=== PATIENT | male | born 2000 | race Two or more races ===

== ENCOUNTER 2025-06-11 06:29 | Emergency (ER) | payer MEDICAID, SELFPAY ==
[2025-06-11 06:39] VITALS: BP 149/84; PULSE 153; RESP 19; TEMP 36.8; O2SAT 97; BMI 24.3
--- NOTE | 2025-06-11 06:39 | XR_ITS ---
Examination: CT brain head without contrast. 2-D sagittal coronal reconstructions Date and time of exam:June 11, 2025 0836 hours INDICATIONS: Patient fell today with injury to the head, head pain CTDI: vol (mGy):50.4 DLP: (mGycm):983 Technique: Multiple CT axial sections of the brain have been obtained, 5 mm slice thickness. Contrast has not been administered. 2-D sagittal, coronal reconstructions have been obtained Low dose protocols were performed. One or more of the following dose reduction techniques were used; automated exposure control, adjustment of the mA and/or KV according to patient size, use of iterative reconstruction technique. Findings: No significant ventricular enlargement. Intra-axial or extra-axial hemorrhage density is not seen. No mass effect or midline shift Basal cisterns are not remarkable. Fourth ventricle is midline. Cranial vault intact. Impression: Negative for acute hemorrhage, mass effect or midline shift
--- NOTE | 2025-06-11 06:39 | XR_ITS ---
Examination: CT cervical spine without contrast 2-D sagittal reconstructions 2-D coronal reconstructions 3-D reconstructions. Exam date and time:June 11, 2025 0836 hours INDICATIONS: Patient fell this morning with injury to the neck, neck pain CTDI:vol (mGy) 14.6 DLP: (mGycm) 324 Technique: Multiple 2 mm axial sections of the cervical spine have been obtained. The coronal and sagittal reconstructions have been obtained. 3-D reconstructions have been obtained. Low dose protocols were performed. One or more of the following dose reduction techniques were used; automated exposure control, adjustment of the mA and/or KV according to patient size, use of iterative reconstruction technique. Findings: Axial sections demonstrate intact base of the skull. C1 exhibit satisfactory relationship to the odontoid. No acute cervical vertebral body fracture seen. Alignment posterior spinous processes satisfactory. Impression: No acute cervical fracture.
--- NOTE | 2025-06-11 06:40 | EDNOTE_ITS ---
ED General RME/HPI General Chief complaint: Medical Clearance Stated complaint: medical clearance Time Seen by Provider: 06/11/25 06:39 Arrival date/time: 06/11/25 06:29 RME / HPI RME / HPI narrative: 25-year-old male with no relevant past medical history presents to the ED for medical clearance for tachycardia. Patient stated that he had a fall today on the roof, but he did not fall off the roof. Patient stated he had been drinking prior to this, but otherwise denies any other illicit drugs. Patient states that he only has some pain in his left lower abdomen, but otherwise no more pain anywhere else. States that the pain is mild. Otherwise no other complaints at this time. Denies any chest pain, nausea, vomiting, loss of consciousness, or shortness of breath. Otherwise no other associated symptoms. Multiple abrasions throughout the body, but no large bruises. Related Data Previous Rx's ?Medication ?Instructions ?Recorded hydroxyzine HCl 50 mg tablet 50 mg PO TID PRN anxiety #20 tabs 05/15/20 naproxen 500 mg tablet 500 mg PO BID PRN pain #14 t abs 12/26/20 erythromycin 5 mg/gram (0.5 %) eye 0.5 inch ophthalmic (eye) TID #3.5 10/09/23 ointment grams Allergies Allergy/AdvReac Type Severity Reaction Status Date / Time No Known Allergies Allergy Verified 06/11/25 09:36 Review of Systems Review of Systems Systems Reviewed: All systems reviewed, normal except as documented Past Medical History Past Medical History CARDIAC: Negative Congestive Heart Failure RESPIRATORY: Positive Asthma; Negative Chronic Obstructive Pulmonary Disease (COPD) GENITOURINARY: Negative Renal Disease ENDOCRINE: Negative Diabetes Mellitus Type 1 or Diabetes Mellitus Type 2 PSYCHO/SOCIAL: Positive Anxiety Social History SMOKING STATUS: Never smoker ED Exam Narrative Physical exam: Gen: A&O X 3, NAD HEENT: NCAT, EOMI, Pupils reactive DERRICK, not icteric. External ears normal. No rhinorrhea. Moist mucous membranes. Neck: Supple, full range of motion, no observable masses, No meningeal sign. Lungs: No Respiratory distress, clear bilateral. CV: tachycardic, no murmurs. Abdomen: Soft, nondistended, non tender, No rebound tenderness. MSK: No joint swelling, no redness, peripheral pulses presents, lumbar with no edema. Skin: No rashes, petechiae, Multiple abrasions with no active bleeding spread out through his bilateral lower extremities, right forearm, and left lower abdomen. lesions. Neuro: No focal neurological deficits appreciated, sensory and motor intact. Psych: Cooperative, appropriate mood and effect. Course Quality Measures none Orders Category Date Time Status EKG (ED ONLY) *Do not use* NOW Care 06/11/25 06:41 Completed Wound Care NOW Care 06/11/25 06:[address] cervical spine wo con Stat Exams 06/11/25 06:[address] head/brain wo con Stat Exams 06/11/25 06:39 Completed EKG (ED Only) Stat Exams 06/11/25 06:41 Ordered Alcohol, Blood Medical Stat Lab 06/11/25 08:53 Completed CBC [CBC] Stat Lab 06/11/25 08:53 Completed CMP [Comprehensive Metabolic Panel] Stat Lab 06/11/25 08:53 Completed Drug Screen,Urine Stat Lab 06/11/25 08:35 Completed Magnesium Stat Lab 06/11/25 08:53 Completed UA [Urinalysis] Stat Lab 06/11/25 08:35 Completed Vital Signs Vital signs: Vital Signs Temperature 98.2 F 06/11/25 06:39 Pulse Rate 153 H 06/11/25 06:39 Respiratory Rate 19 06/11/25 06:39 Blood Pressure 149/84 H 06/11/25 06:39 Pulse Oximetry (%) 97 06/11/25 06:39 Oxygen Delivery Method Room Air 06/11/25 06:39 Discharge Plan Plan Patient Disposition: Long-Term/Court/Law Prescriptions/Referrals Prescriptions/Med Rec: No Action hydroxyzine HCl 50 mg tablet 50 mg PO TID PRN (Reason: anxiety) Qty: 20 0RF naproxen 500 mg tablet 500 mg PO BID PRN (Reason: pain) Qty: 14 0RF erythromycin 5 mg/gram (0.5 %) ointment 0.5 inch ophthalmic (eye) TID Qty: 3.5 0RF Referrals: Mango Isaac MD [Primary Care Provider] - In 1 week Problem List Clinical Impression: Fall Patient/Caregiver Discharge Instructions Other Activity Instructions:: Follow-up primary care physician within 1 to 2 days Recommend Tylenol every 6 hours as needed for pain for the next 2 or 3 days Recommend ibuprofen 600 mg every 8 hours as needed for pain for the next 1 to 2 days Recommend abstaining from all illicit drugs Recommend oral hydration with at least 2L per day. Come back to the ER if symptoms persist or worsen Education Materials: ED Fall with Uncertain Cause Print Language: Mohawk MDM Narrative MDM hospital course: Patient was seen and evaluated upon arrival by myself. Diagnostic labs and imaging were ordered. 9:40: Patient drug screen was positive for cocaine and alcohol levels were elevated at 53.7. Tachycardia likely secondary to cocaine use. 9:50: Patient CT head came back negative for any acute hemorrhage, mass effect, or midline shift and cervical spine CT did not show any acute fractures. 9: 51: Patient at this time [facility] At this time we will discharge patient. Case disclosed with Attending Dr. Tashi Jackson PGY2 Disclaimer: Even though this this note was dictated by speech recognition and even though it was carefully revised there may still be minor errors in enterprise architect manager due to voice recognition software.
[2025-06-11 07:53] VITALS: BP 155/92; PULSE 115; RESP 18; TEMP 36.7; O2SAT 97
[2025-06-11 08:59] LABS: Collection Type, Urine Voided; Squamous Epithelial Cell,Urine 0 /hpf (0-5)
[2025-06-11 09:01] LABS: Basophils # (Auto) 0.1 Thou/mm3 (0.0-0.2); Basophils % (Auto) 0 % (0-2.5); Eosinophils # (Auto) 0.1 Thou/mm3 (0.0-0.5); Eosinophils % (Auto) 1 % (0-10); Hematocrit 46.4 % (41.0-53.0); Hemoglobin 16.5 g/dL (13.5-16.0); Immature Granulocytes Auto 0.07 Thou/mm3 (0.00-0.00); Lymphocytes # (Auto) 2.3 Thou/mm3 (1.0-4.8); Lymphocytes % (Auto) 20 % (10-50); Mean Corpuscular HGB Conc 35.6 g/dl (31.0-37.0); Mean Corpuscular Hemoglobin 31.1 pg (25.0-35.0); Mean Corpuscular Volume 87 fL (80-100); Monocytes # (Auto) 0.9 Thou/mm3 (0.0-0.8); Monocytes % (Auto) 8 % (0-12); Neutrophils # (Auto) 8.2 Thou/mm3 (1.8-7.7); Neutrophils % (Auto) 71 % (37-80); Nucleated Red Blood Cell # 0.00 Thou/mm3 (0.00-0.00); Nucleated Red Blood Cell % 0 /100 WBC (0); Platelet Count 229 Thou/mm3 (140-440); RDW Standard Deviation 41.3 fL (35.1-43.9); Red Blood Count 5.31 Miln/mm3 (4.50-5.90); White Blood Count 11.6 Thou/mm3 (3.8-10.6)
[2025-06-11 09:02] LABS: Bilirubin,Urine Negative (Negative); Blood,Urine Negative (Negative); Clarity,Urine Clear (Clear/Hazy); Color,Urine Colorless (Lt Yel-Yel); Glucose, Urine Negative (Negative); Ketones,Urine Negative (Negative); Leukocyte Esterase,Urine Negative (Negative); Nitrite,Urine Negative (Negative); PH,Urine 6.0 (5.0-7.0); Protein,Urine Negative (Neg - Trace); RBC,Urine 2 /hpf (0-3); Specific Gravity,Urine 1.009 (1.001-1.035); Urobilinogen,Urine Negative mg/dL (0.0-1.0); WBC,Urine < 1 /hpf (0-5)
[2025-06-11 09:21] LABS: Alanine Aminotransferase 16 U/L (10-49); Albumin, Serum 4.7 gm/dL (3.5-5.0); Albumin/Globulin Ratio 1.9 (1.2-2.2); Alcohol, Blood Medical 53.7 mg/dL (0-10.0); Alkaline Phosphatase 74 U/L (46-116); Anion Gap 13 (7-16); Aspartate Amino Transferase 30 U/L (0-34); BUN/Creatinine Ratio 11 Ratio (12-20); Bilirubin,Total 0.4 mg/dL (0.3-1.2); Blood Urea Nitrogen 10 mg/dL (9-23); Calcium 9.4 mg/dL (8.3-10.6); Calcium (Corrected) 9.4 mg/dL (8.5-10.1); Carbon Dioxide 26.0 mMol/L (20.0-31.0); Chloride 102 mMol/L (98-107); Creatinine (Component) 0.9 mg/dL (0.6-1.3); Estimated Creatinine Clearance 130.7 mL/min (>60); Globulin 2.5 gm/dL (2.3-3.5); Glucose 101 mg/dL (74-106); Magnesium 1.8 mg/dL (1.6-2.6); Osmolality,Calculated 280 (275-295); Potassium 3.9 mMol/L (3.4-5.1); Sodium 141 mMol/L (136-145); Total Protein 7.2 gm/dL (5.7-8.2); eGFR > 60 See Note
[2025-06-11 09:33] LABS: Amphetamine/Methamp Scrn,U Negative (Negative); Barbiturate Screen,Urine Negative (Negative); Benzodiazepines Screen,Urine Negative (Negative); Benzoylecgonine Screen, Ur Positive (Negative); Fentanyl Screen,Urine Negative (Negative); Opiate Screen,Urine Negative (Negative); THC Screen,Urine Negative (Negative)
[2025-06-11 09:41] VITALS: BP 136/95; PULSE 103; RESP 12; TEMP 36.7; O2SAT 97
== END 2025-06-11 10:05 ==
PROVIDERS: PCP Family Medicine
DX: Z02.89 Encounter for other administrative examinations (principal); R00.0 Tachycardia, unspecified
CPT/HCPCS: 36415; 70450; 72125; 80053; 80307; 80320; 81001; 83735; 85025; 93005; 99283; G0480